=== PATIENT | male | born 1990 ===

== ENCOUNTER 2016-09-12 10:58 | Emergency (ER) | payer OTHER ==
[2016-09-12 11:25] VITALS: BP 124/78
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
== END 2016-09-12 12:36 | disposition home or self-care (01) ==
LOC: UCCORT 10:58
DX: S00.83XA Contusion of other part of head, initial encounter (principal); S09.93XA Unspecified injury of face, initial encounter; Y04.0XXA Assault by unarmed brawl or fight, initial encounter; Y93.9 Activity, unspecified; Y99.9 Unspecified external cause status
CPT/HCPCS: 70110; 99211; G0463

== ENCOUNTER 2017-03-28 12:56 | Emergency (ER) | payer SELFPAY ==
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
[2017-03-28 15:09] VITALS: BP 141/88
== END 2017-03-28 14:54 ==
LOC: UCEAST 12:56
DX: S06.0X0A Concussion without loss of consciousness, initial encounter (principal); S09.93XA Unspecified injury of face, initial encounter; M54.2 Cervicalgia; Y04.2XXA Assault by strike against or bumped into by another person, initial encounter; Y93.9 Activity, unspecified; Y92.9 Unspecified place or not applicable; Y99.9 Unspecified external cause status
CPT/HCPCS: 70450; 70486; 72125; 99212; G0463